=== PATIENT | male | born 1950 | race Caucasian/White ===

== ENCOUNTER → 2018-01-20 15:38 | Outpatient (CLI) | payer OTHER, SELFPAY ==
--- NOTE | 2018-01-20 15:40 | CT_ITS ---
STUDY: CT MAXILLOFACIAL SINUSES REASON FOR EXAM: Male, 67 years old. Sinusitis RADIATION DOSAGE (If Supplied By Facility): CTDIvol = ( 33.45 ) mGy, DLP = ( 470.26 ) mGycm TECHNIQUE: The patient was scanned in a multi detector CT scanner. High resolution axial imaging was performed without the administration of intravenous contrast material. Sagittal and coronal images were reconstructed. Individualized dose optimization techniques were used for this CT. COMPARISON: None. FINDINGS: FRONTAL SINUSES: Normal aeration, without mucosal inflammatory disease. ETHMOIDAL SINUSES: Mild mucosal hypertrophy bilaterally. MAXILLARY SINUSES: Normal aeration, without mucosal inflammatory disease. SPHENOIDAL SINUSES: Normal aeration, without mucosal inflammatory disease. There is patency of the bilateral maxillary infundibuli with normal uncinate processes, ethmoid bullae, and hiatus semilunaris. Normal bilateral middle turbinates. Normal bilateral inferior turbinates. Normal midline nasal septum. There is patency of the bilateral nasal airways. The visualized osseous structures are normal. The visualized bilateral orbital contents are normal. CT/Sinus/Facial Bone IMPRESSION: Mild mucosal hypertrophy in the bilateral ethmoid sinuses. Otherwise, unremarkable noncontrast CT of the sinuses. Electronically Signed: Jesus Mosley, at 22:55 EDT Tel , Service support ,
== END ==
PROVIDERS: Family Provider Family Medicine; PCP Family Medicine; Visit Provider Otolaryngology Otolaryngology/Facial Plastic Surgery
DX: J32.9 Chronic sinusitis, unspecified (principal); R43.0 Anosmia
CPT/HCPCS: 70486

== ENCOUNTER → 2019-11-04 09:14 | Outpatient (CLI) | payer MEDICARE, BC, SELFPAY ==
--- NOTE | 2019-11-04 09:18 | RAD_ITS ---
Procedure: Fluoroscopically guided injection of local anesthetic and steroid into the right shoulder. INDICATIONS: Osteoarthritis, shoulder pain x1 year. No known injury. CONSENT: The entire procedure, risks, benefits and alternatives (including doing nothing) were discussed with the patient preprocedure. Risks presented included (but were not limited to) infection/abscess/septic joint, bleeding, pain, reaction to medications. all. Patient questions were answered satisfactorily. Written consent was obtained, witnessed and placed on the patient''s chart. TECHNIQUE: The patient was taken into the fluoroscopy suite and placed in the supine position. A short time out was observed. Limited and directed for osteopenic was performed of the right shoulder and an intended percutaneous site identified and marked. The anterior right shoulder soft tissues superficially where then thoroughly prepped and draped in the usual sterile matter. Local anesthesia was obtained utilizing approximately 0.5 cc of 2% lidocaine without epinephrine. Next, a 22-gauge spinal needle was advanced through the anterior soft tissues and tip of the needle placed on bone within the region of joint capsule. Appropriate needle tip placement was verified by injection of a small amount of sterile iodinated contrast material. From this needle positioning, 4 cc of 1% lidocaine without epinephrine as well as 2 cc of betamethasone were injected into the right shoulder joint. All devices were removed, the soft tissues cleansed and a Band-Aid applied. RAD/Inj/Asp Aiden Jt Should/Hip/Knee IMPRESSION: Successful instillation of sterile anesthetic agent and betamethasone into the right shoulder. Complications: The patient tolerated the procedure well. There was no evident immediate postprocedure complication. Fluoroscopy time 15 seconds. Electronically Signed: Jose Stallings MD at 10:14 EST , Service support ,
== END ==
PROVIDERS: Family Provider Family Medicine; PCP Family Medicine; Referring Provider Specialist; Visit Provider Specialist
DX: M19.011 Primary osteoarthritis, right shoulder (principal)
CPT/HCPCS: 20610; 77002; Q9967; J0702